=== PATIENT | male | born 1995 | race African-American/Black ===

== ENCOUNTER 2023-07-31 01:31 | Emergency (ER) | payer SELFPAY ==
[~2023-07-31] VITALS: Ht 182.9 cm; Wt 150.0 kg
[2023-07-31 04:00] VITALS: BP 125/79; PULSE 76; RESP 18; TEMP 97.5; O2SAT 100
[2023-07-31] MEDS ORDERED: DOXYCYCLINE HYCLATE 100MG CAPSULE PO ONE (06:45)
[2023-07-31] MEDS ORDERED: DOXY100T2 MT (06:45)
[2023-07-31] MEDS ORDERED: CEFTRIAXONE SODIUM 500MG VIAL IM ONE (06:45)
== END 2023-07-31 07:17 | disposition home or self-care (01) ==
LOC: ER 01:31
DX: N45.1 Epididymitis (principal)
CPT/HCPCS: 76870; 93976; 99284